=== PATIENT | female | born 1940 | race Caucasian/White ===

== ENCOUNTER 2016-10-12 19:34 | Emergency (ER) | payer MEDICARE, BC ==
[2016-10-12 19:58] VITALS: RESP 18; TEMP 97
[2016-10-12] MEDS ORDERED: APAP/HYDROCODONE 325/5 TAB PO ONE (20:23)
[2016-10-12] MEDS ORDERED: APAP/HYDROCODONE 325/5 TAB ONE (20:24)
[2016-10-12] MEDS ORDERED: CLONIDINE 0.1 MG TAB PO ONE (20:32)
[2016-10-12] MEDS ORDERED: CLONIDINE 0.1 MG TAB ONE (20:33)
[2016-10-12] MEDS ORDERED: METOPROLOL TARTRATE 25 MG TAB PO ONE (21:06)
[2016-10-12] MEDS ORDERED: METOPROLOL TARTRATE 25 MG TAB ONE (21:07)
[2016-10-12 23:14] VITALS: BP 141/82; PULSE 73; O2SAT 94
== END 2016-10-12 22:14 | disposition home or self-care (01) | DRG 159 ==
LOC: ED 19:34
DX: K04.7 Periapical abscess without sinus (principal); I10 Essential (primary) hypertension
CPT/HCPCS: 99283

== ENCOUNTER 2018-04-17 17:22 | Emergency (ER) | payer MEDICARE, BC ==
[2018-04-17 17:45] VITALS: TEMP 97.7
[2018-04-17 18:22] VITALS: BP 126/77; PULSE 102; RESP 18; O2SAT 96
== END 2018-04-17 18:20 | disposition home or self-care (01) | DRG 156 ==
LOC: ED 17:22
DX: H91.93 Unspecified hearing loss, bilateral (principal)
CPT/HCPCS: 99282